=== PATIENT | female | born 1965 | race African-American/Black ===

== ENCOUNTER → 2017-01-09 | Day surgery (SDC) | payer MEDICAID ==
[~2017-01-09] VITALS: Ht 160 cm; Wt 77.1 kg
[~2017-01-09] MED LIST: ASPI-1159 PO; BUPIVACAINE/EPINEPHRINE/PF 0.25%/0.0005 30ML ONE; FLUT9.9S NS; GABA-531 PO; IBUP-2030 PO; LACTATED RINGERS 1,000 ML IV SCH; LURA80TA PO; METFORMIN; MORPHINE SULFATE/PF 1MG/ML 10ML AMP ONE; NAPR-681 PO; OMEP20TA2 PO; SERT-112 PO; SUCR1TAB30 PO; TRAM50TA3 PO; VENL150C52 PO; abilify; trazadone; zoloft
== END ==
LOC: OR 05:41
PROVIDERS: ATTEND Orthopaedic Surgery
DX: M94.261 Chondromalacia, right knee (principal); Z53.9 Procedure and treatment not carried out, unspecified reason
CPT/HCPCS: 29880; 82962; J7120; J0171; J2274

== ENCOUNTER 2017-01-11 11:49 | Day surgery (SDC) | payer MEDICAID ==
[~2017-01-11 11:49] MED LIST changes: -BUPIVACAINE/EPINEPHRINE/PF 0.25%/0.0005 30ML ONE; -LACTATED RINGERS 1,000 ML IV SCH; -MORPHINE SULFATE/PF 1MG/ML 10ML AMP ONE
[2017-01-11] MEDS ORDERED: DEXT 5%/0.9% NACL 1,000 ML IV SCH (14:45)
[2017-01-11] MEDS ORDERED: BUPIVACAINE/EPINEPHRINE/PF 0.25%/0.0005 30ML ONE (19:10)
[2017-01-11] MEDS ORDERED: EPINEPHRINE 1:1000 1 MG/ML AMP ONE (19:10)
[2017-01-11] MEDS ORDERED: MORPHINE SULFATE/PF 1MG/ML 10ML AMP ONE (19:12)
[2017-01-11] MEDS ORDERED: MIDAZOLAM HCL 2 MG/2 ML VIAL ONE (19:21)
[2017-01-11] MEDS ORDERED: LIDOCAINE HCL 1% 20ML VIAL (Pyxis) INJ ONE (19:21)
[2017-01-11] MEDS ORDERED: PROPOFOL 200MG/20ML VIAL IV ONE (19:21)
[2017-01-11] MEDS ORDERED: ROCURONIUM BROMIDE 10MG/ML VIAL 5ML IV ONE (19:21)
[2017-01-11] MEDS ORDERED: FENTANYL CITRATE/PF 50MCG/ML 2ML VIAL ONE (19:21)
[2017-01-11] MEDS ORDERED: ONDANSETRON HCL 4MG/2ML VIAL ONE (19:52)
[2017-01-11] MEDS ORDERED: METOCLOPRAMIDE HCL 10MG/2ML VIAL ONE (19:52)
[2017-01-11] MEDS ORDERED: EPHEDRINE SULFATE 50MG/ML VIAL ONE (19:58)
[2017-01-11] MEDS ORDERED: NEOSTIGMINE METHYLSULFATE 1MG/ML 10 ML VIAL ONE (20:16)
[2017-01-11] MEDS ORDERED: GLYCOPYRROLATE 0.2 MG/ML 2ML VIAL ONE (20:16)
[2017-01-11] MEDS ORDERED: MORPHINE SULFATE 10 MG/ML CPJ IV PRN (20:30)
[2017-01-11 21:07] VITALS: BP 134/61
== END 2017-01-11 22:00 | disposition home or self-care (01) ==
LOC: OR 11:49
PROVIDERS: ATTEND Orthopaedic Surgery
DX: M94.261 Chondromalacia, right knee (principal); M65.9 Synovitis and tenosynovitis, unspecified; M25.761 Osteophyte, right knee; M23.8X1 Other internal derangements of right knee; E66.3 Overweight; E13.69 Other specified diabetes mellitus with other specified complication; K44.9 Diaphragmatic hernia without obstruction or gangrene; F32.9 Major depressive disorder, single episode, unspecified; M19.90 Unspecified osteoarthritis, unspecified site; G89.29 Other chronic pain; Z91.013 Allergy to seafood; Z79.4 Long term (current) use of insulin; Z79.899 Other long term (current) drug therapy; Z86.2 Personal history of diseases of the blood and blood-forming organs and certain disorders involving the immune mechanism; Z79.01 Long term (current) use of anticoagulants; Z98.890 Other specified postprocedural states; Z90.710 Acquired absence of both cervix and uterus
CPT/HCPCS: 29881; 82962; 88305; 88311; J0171; J2250; J2270; J2405; J2710; J2765; J3010; J3490; J7042; J7120; L1830; J2274; J2704

== ENCOUNTER 2017-05-10 05:37 | Inpatient (IN) | payer MEDICAID ==
[~2017-05-10] VITALS: Ht 160 cm; Wt 79.8 kg
[~2017-05-10 05:37] MED LIST changes: +ERGO500013 PO; +METF500T4 PO; -METFORMIN; +TRAZ150T79 PO; -trazadone
[2017-05-10] MEDS ORDERED: LACTATED RINGERS 1,000 ML IV SCH (06:15)
[2017-05-10] MEDS ORDERED: MORPHINE SULFATE/PF 1MG/ML 10ML AMP ONE (06:52)
[2017-05-10] MEDS ORDERED: GENTAMICIN SULF 40MG/ML 2ML VIAL ONE (06:53)
[2017-05-10] MEDS ORDERED: EPINEPHRINE 1:1000 1 MG/ML AMP ONE (06:54)
[2017-05-10] MEDS ORDERED: BACITRACIN 50,000 UNITS/VIAL ONE (06:54)
[2017-05-10] MEDS ORDERED: NORMAL SALINE 0.9% 10 ML SYR ONE (06:54)
[2017-05-10 06:55] LABS: BASOPHILS % 0.7 % (0.0-2.0); EOSINOPHILS % 4.4 % (0.0-5.0); HEMATOCRIT. 35.1 % (36.0-48.0); HEMOGLOBIN. 11.1 g/dL (12.0-16.0); LYMPHOCYTES % 39.6 % (20.0-50.0); MEAN CORPUSCULAR HEMOGLOBIN 23.6 pg (28.0-32.0); MEAN CORPUSCULAR VOLUME 74.7 fL (81.0-99.0); MEAN PLATELET VOLUME 8.9 fl (7.4-10.4); NEUTROPHILS % 45.3 % (40.0-76.0); PLATELET 361 x1000/uL (130-400); RED CELL DISTRIBUTION WIDTH 16.9 % (11.6-14.6)
[2017-05-10] MEDS ORDERED: TRANEXAMIC ACID 1,000 MG in SODIUM CHLORIDE 0.9% 100 ML IV NR (07:00)
[2017-05-10 07:03] LABS: PARTIAL THROMBOPLASTIN TIME 26.2 sec (23.4-31.0); PROTHROMBIN TIME 10.7 sec (9.4-11.6)
[2017-05-10 07:05] LABS: CHLORIDE 111 mEq/L (98-107)
[2017-05-10 07:28] LABS: CLARITY URINE CLEAR (CLEAR); COLOR URINE YELLOW (YELLOW); KETONES URINE NEGATIVE (NEGATIVE); LEUKOCYTE ESTERASE URINE NEGATIVE (NEGATIVE); NITRITE URINE NEGATIVE (NEGATIVE); OCCULT BLOOD URINE NEGATIVE (NEGATIVE); PROTEIN URINE NEGATIVE (NEGATIVE); SPECIFIC GRAVITY URINE 1.017 (1.005-1.030); UROBILINOGEN URINE 0.2 E.U./dL (0.2-1.0)
[2017-05-10] MEDS ORDERED: BUPIVACAINE HCL/EPINEPHRINE/PF 0.5%/0.0005 10ML ONE (07:28)
[2017-05-10] MEDS ORDERED: ZOLPIDEM TARTRATE 5MG TABLET PO PRN (07:30)
[2017-05-10] MEDS ORDERED: MAGNESIUM HYDROXIDE 400MG/5ML 30ML UDC PO PRN (07:30)
[2017-05-10] MEDS ORDERED: HYDROCODONE/ACETAMINOPHEN 10/325MG TABLET PO PRN (07:30)
[2017-05-10] MEDS ORDERED: ONDANSETRON HCL 4MG/2ML VIAL IV PRN ×2 (07:30→08:30)
[2017-05-10] MEDS ORDERED: FENTANYL CITRATE/PF 50MCG/ML 2ML VIAL ONE (07:34)
[2017-05-10] MEDS ORDERED: MIDAZOLAM HCL 2 MG/2 ML VIAL ONE (07:34)
[2017-05-10] MEDS ORDERED: PROPOFOL 10MG/ML 100ML 100 ML IV ONE (07:39)
[2017-05-10] MEDS ORDERED: METHYLENE BLUE 50 MG/10 ML AMP IV ONE (07:54)
[2017-05-10] MEDS ORDERED: CEFAZOLIN SODIUM 1000MG/VIAL ONE (07:55)
[2017-05-10] MEDS ORDERED: DEXAMETHASONE 4MG/ML 1ML VIAL ONE (07:55)
[2017-05-10] MEDS ORDERED: ONDANSETRON HCL 4MG/2ML VIAL ONE (07:55)
[2017-05-10] MEDS ORDERED: MEPERIDINE HCL/PF 25MG/ML CPJ IV PRN (08:30)
[2017-05-10] MEDS ORDERED: LABETALOL 5MG/ML SYR 20 MG/4 ML SYRINGE IV PRN (08:30)
[2017-05-10] MEDS ORDERED: HYDROMORPHONE HCL/PF 2MG/ML CPJ IV PRN (08:30)
[2017-05-10] MEDS ORDERED: PROPOFOL 200MG/20ML VIAL IV ONE (09:37)
[2017-05-10] MEDS ORDERED: DIPHENHYDRAMINE INJ IV PRN (11:45)
[2017-05-10] MEDS ORDERED: ONDANSETRON INJ IV PRN (11:45)
[2017-05-10] MEDS ORDERED: NALOXONE INJ IV PRN (11:45)
[2017-05-10] MEDS ORDERED: HYDROMORPHONE PCA 10MG/50ML IV PRN (11:45)
[2017-05-10 20:00] VITALS: BP 113/65
[2017-05-10] MEDS ORDERED: DEXTROSE 50% WATER 50ML SYRINGE IV PRN (20:15)
[2017-05-10] MEDS: DOCUSATE SODIUM 100MG CAPSULE PO SCH (20:24)
[2017-05-10] MEDS: FERROUS SULFATE 325MG TABLET PO SCH (20:24)
[2017-05-10] MEDS: INSULIN LISPRO 100 UNITS/ML SUBCUT SCH (21:00)
[2017-05-10] MEDS: BLOOD SUGAR DIAGNOSTIC STRIP TEST SCH (21:24)
[2017-05-11] VITALS: BP 107/58
[2017-05-11] MEDS: CEFAZOLIN 2,000 MG in DEXT 5% WATER 100 ML IV SCH ×2 (00:28→08:35)
[2017-05-11 04:00] VITALS: BP 112/68
[2017-05-11 05:52] LABS: HEMATOCRIT 30.3 % (36.0-48.0); HEMOGLOBIN 9.8 g/dL (12.0-16.0); MEAN CORPUSCULAR HEMOGLOBIN 24.4 pg (28.0-32.0); MEAN CORPUSCULAR VOLUME 75.4 fL (81.0-99.0); PLATELET 303 x1000/uL (130-400); RED BLOOD CELL COUNT 4.02 mill/uL (4.2-5.4); RED CELL DISTRIBUTION WIDTH 16.9 % (11.6-14.6)
[2017-05-11] MEDS: BLOOD SUGAR DIAGNOSTIC STRIP TEST SCH ×4 (06:50→21:46)
[2017-05-11 06:52] LABS: CHLORIDE 109 mEq/L (98-107)
[2017-05-11] MEDS: HYDROCODONE/ACETAMINOPHEN 10/325MG TABLET PO PRN ×2 (07:08→22:36)
[2017-05-11] MEDS: INSULIN LISPRO 100 UNITS/ML SUBCUT SCH ×4 (07:10→21:51)
[2017-05-11 08:00] VITALS: BP 113/62
[2017-05-11] MEDS: FERROUS SULFATE 325MG TABLET PO SCH ×3 (08:34→17:37)
[2017-05-11] MEDS: DOCUSATE SODIUM 100MG CAPSULE PO SCH ×2 (08:34→17:37)
[2017-05-11] MEDS: ENOXAPARIN 30MG/0.3ML SYR SUBCUT SCH ×2 (08:35→21:26)
[2017-05-11 12:00] VITALS: BP 104/67
[2017-05-11 16:00] VITALS: BP 133/69
[2017-05-11] MEDS: ACETAMINOPHEN 325MG TABLET PO PRN (17:38)
[2017-05-11 20:00] VITALS: BP 131/70
[2017-05-12] VITALS (7 sets, daily range): BP systolic 119–139; BP diastolic 51–75
[2017-05-12] MEDS: ACETAMINOPHEN 325MG TABLET PO PRN (01:17)
[2017-05-12] MEDS: HYDROCODONE/ACETAMINOPHEN 10/325MG TABLET PO PRN ×3 (03:21→16:52)
[2017-05-12] MEDS: BLOOD SUGAR DIAGNOSTIC STRIP TEST SCH ×3 (07:04→17:09)
[2017-05-12] MEDS: INSULIN LISPRO 100 UNITS/ML SUBCUT SCH ×3 (07:50→17:09)
[2017-05-12 08:09] LABS: BASOPHILS % 0.4 % (0.0-2.0); EOSINOPHILS % 0.8 % (0.0-5.0); HEMATOCRIT. 30.5 % (36.0-48.0); HEMOGLOBIN. 9.7 g/dL (12.0-16.0); LYMPHOCYTES % 34.5 % (20.0-50.0); MEAN CORPUSCULAR HEMOGLOBIN 23.7 pg (28.0-32.0); MEAN CORPUSCULAR VOLUME 74.3 fL (81.0-99.0); MEAN PLATELET VOLUME 9.1 fl (7.4-10.4); MONOCYTES % 11.9 % (2.0-8.0); NEUTROPHILS % 52.4 % (40.0-76.0); PLATELET 301 x1000/uL (130-400); RED BLOOD CELL COUNT 4.11 mill/uL (4.2-5.4); RED CELL DISTRIBUTION WIDTH 16.6 % (11.6-14.6)
[2017-05-12 08:51] LABS: CHLORIDE 108 mEq/L (98-107)
[2017-05-12] MEDS: DOCUSATE SODIUM 100MG CAPSULE PO SCH ×2 (09:50→17:19)
[2017-05-12] MEDS: FERROUS SULFATE 325MG TABLET PO SCH ×3 (09:51→17:19)
[2017-05-12] MEDS: ENOXAPARIN 30MG/0.3ML SYR SUBCUT SCH (09:51)
== END 2017-05-12 17:55 | disposition home health service (06) | DRG 302 ==
LOC: OR 05:37 → ORIP 07:29 → 6EST 18:30
PROVIDERS: ADMIT Internal Medicine; ATTEND Internal Medicine
PROC: 0SRC0J9 Replacement of Right Knee Joint with Synthetic Substitute, Cemented, Open Approach (ICD-10-PCS; principal; 2017-05-10 07:30)
DX: M17.11 Unilateral primary osteoarthritis, right knee (principal); I10 Essential (primary) hypertension; D64.9 Anemia, unspecified; E11.9 Type 2 diabetes mellitus without complications; F32.9 Major depressive disorder, single episode, unspecified; E78.5 Hyperlipidemia, unspecified; G89.29 Other chronic pain; K21.9 Gastro-esophageal reflux disease without esophagitis; M65.9 Synovitis and tenosynovitis, unspecified; Z79.82 Long term (current) use of aspirin; Z79.899 Other long term (current) drug therapy; Z90.710 Acquired absence of both cervix and uterus; Z90.49 Acquired absence of other specified parts of digestive tract
CPT/HCPCS: 36415; 73560; 80048; 81003; 82962; 85025; 85027; 85610; 85730; 86850; 86900; 86920; 88304; 88311; 93970; 97110; 97116; 97162; 97166; 97530; 97535; A4216; J0171; J0690; J1100; J1170; J1580; J1650; J1815; J2250; J2274; J2405; J2704; J3010; J3490; J7030; J7050; J7060; J7120; Q9968

== ENCOUNTER 2017-11-04 13:12 | Emergency (ER) | payer MEDICAID ==
[~2017-11-04] VITALS: Ht 160 cm; Wt 79.0 kg
[~2017-11-04 13:12] MED LIST changes: -METF500T4 PO; +METF500T6 PO; -abilify; -zoloft
[2017-11-04 13:27] VITALS: BP 147/77
== END 2017-11-04 15:51 | disposition home or self-care (01) ==
LOC: ER 14:39
DX: D22.39 Melanocytic nevi of other parts of face (principal); E11.9 Type 2 diabetes mellitus without complications; K21.9 Gastro-esophageal reflux disease without esophagitis; F32.9 Major depressive disorder, single episode, unspecified
CPT/HCPCS: 99281

== ENCOUNTER 2018-10-05 10:22 | Emergency (ER) | payer MEDICAID ==
[~2018-10-05] VITALS: Ht 162.6 cm; Wt 78.0 kg
[~2018-10-05 10:22] MED LIST changes: -ASPI-1159 PO; +ASPI-1393 PO; +METF-414 PO; -METF500T6 PO
[2018-10-05] MEDS ORDERED: PREDNISONE 20MG TABLET PO STA (10:49)
[2018-10-05] MEDS ORDERED: ALBUTEROL (0.083%) 2.5MG/3ML NEB HHN STA (10:49)
[2018-10-05 11:43] VITALS: BP 134/89
== END 2018-10-05 11:43 | disposition home or self-care (01) ==
LOC: ER 10:22
DX: J20.9 Acute bronchitis, unspecified (principal); J01.90 Acute sinusitis, unspecified; I10 Essential (primary) hypertension; E11.9 Type 2 diabetes mellitus without complications; Z79.82 Long term (current) use of aspirin; Z90.710 Acquired absence of both cervix and uterus; Z96.659 Presence of unspecified artificial knee joint; Z98.890 Other specified postprocedural states
CPT/HCPCS: 71045; 94640; 99283; J7611

== ENCOUNTER 2018-11-22 17:22 | Emergency (ER) | payer MEDICAID ==
[~2018-11-22] VITALS: Ht 160 cm; Wt 76.0 kg
[2018-11-22 19:04] LABS: CLARITY URINE CLEAR (CLEAR); COLOR URINE YELLOW (YELLOW); KETONES URINE NEGATIVE (NEGATIVE); LEUKOCYTE ESTERASE URINE 2+ (NEGATIVE); NITRITE URINE NEGATIVE (NEGATIVE); OCCULT BLOOD URINE NEGATIVE (NEGATIVE); PROTEIN URINE NEGATIVE (NEGATIVE); SPECIFIC GRAVITY URINE 1.007 (1.005-1.030); UROBILINOGEN URINE 0.2 E.U./dL (0.2-1.0)
[2018-11-22] MEDS ORDERED: AMOXICILLIN 500 MG CAPSULE PO ONE (19:15)
[2018-11-22 19:20] VITALS: BP 132/74
== END 2018-11-22 21:42 | disposition home or self-care (01) ==
LOC: ER 17:22
DX: N30.90 Cystitis, unspecified without hematuria (principal); E11.9 Type 2 diabetes mellitus without complications; Z79.82 Long term (current) use of aspirin; Z79.899 Other long term (current) drug therapy
CPT/HCPCS: 81003; 87077; 87186; 99283

== ENCOUNTER 2019-04-17 15:46 | Emergency (ER) | payer MEDICAID ==
[~2019-04-17] VITALS: Ht 157.5 cm; Wt 69.0 kg
[~2019-04-17 15:46] MED LIST changes: -ASPI-1393 PO; +ASPI-1497 PO
[2019-04-17] MEDS ORDERED: TETRACAINE 0.5% OPHTH DROPS 4ML BOTHEYE ONE (17:30)
[2019-04-17] MEDS ORDERED: FLUORESCEIN SODIUM 1MG/STRIP BOTHEYE ONE (17:30)
[2019-04-17 18:38] VITALS: BP 132/79
== END 2019-04-17 18:39 | disposition home or self-care (01) ==
LOC: ER 15:46
DX: H57.11 Ocular pain, right eye (principal); H04.123 Dry eye syndrome of bilateral lacrimal glands; E11.9 Type 2 diabetes mellitus without complications; Z79.82 Long term (current) use of aspirin; Z90.710 Acquired absence of both cervix and uterus; Z96.659 Presence of unspecified artificial knee joint; Z98.890 Other specified postprocedural states
CPT/HCPCS: 99283

== ENCOUNTER 2019-08-01 13:34 | Emergency (ER) | payer MEDICAID ==
[~2019-08-01] VITALS: Ht 157.5 cm; Wt 69.0 kg
[2019-08-01] MEDS ORDERED: ACETAMINOPHEN 325MG TABLET PO STA (14:36)
[2019-08-01] MEDS ORDERED: ONDANSETRON 4MG ODT PO ONE (14:45)
[2019-08-01] MEDS ORDERED: FAMOTIDINE 20MG TABLET PO ONE (14:45)
[2019-08-01 14:53] LABS: CLARITY URINE CLEAR (CLEAR); COLOR URINE YELLOW (YELLOW); KETONES URINE NEGATIVE (NEGATIVE); LEUKOCYTE ESTERASE URINE NEGATIVE (NEGATIVE); NITRITE URINE NEGATIVE (NEGATIVE); OCCULT BLOOD URINE NEGATIVE (NEGATIVE); PROTEIN URINE NEGATIVE (NEGATIVE); SPECIFIC GRAVITY URINE 1.011 (1.005-1.030); UROBILINOGEN URINE 0.2 E.U./dL (0.2-1.0)
[2019-08-01 15:35] LABS: BASOPHILS % 0.9 % (0.0-2.0); EOSINOPHILS % 2.1 % (0.0-5.0); HEMATOCRIT. 34.1 % (36.0-48.0); HEMOGLOBIN. 11.4 g/dL (12.0-16.0); LYMPHOCYTES % 27.1 % (20.0-50.0); MEAN CORPUSCULAR HEMOGLOBIN 27.5 pg (28.0-32.0); MEAN CORPUSCULAR VOLUME 82.1 fL (81.0-99.0); MEAN PLATELET VOLUME 9.6 fl (7.4-10.4); MONOCYTES % 9.6 % (2.0-8.0); NEUTROPHILS % 60.3 % (40.0-76.0); PLATELET 289 x1000/uL (130-400); RED BLOOD CELL COUNT 4.15 mill/uL (4.2-5.4); RED CELL DISTRIBUTION WIDTH 15.4 % (11.6-14.6)
[2019-08-01 15:42] LABS: INR 0.9; PROTHROMBIN TIME 10.3 sec (9.6-11.0)
[2019-08-01 15:43] LABS: CHLORIDE 108 mEq/L (98-107)
[2019-08-01 19:00] VITALS: BP 158/88
== END 2019-08-01 19:12 | disposition home or self-care (01) ==
LOC: ER 13:34
DX: R10.9 Unspecified abdominal pain (principal); E11.9 Type 2 diabetes mellitus without complications; Z79.899 Other long term (current) drug therapy; Z79.82 Long term (current) use of aspirin; Z90.710 Acquired absence of both cervix and uterus
CPT/HCPCS: 36415; 76700; 80053; 81003; 83690; 85025; 85610; 99284; Q0162

== ENCOUNTER 2019-08-18 18:48 | Emergency (ER) | payer MEDICAID ==
[~2019-08-18] VITALS: Ht 165.1 cm; Wt 70.0 kg
[2019-08-18] MEDS ORDERED: SODIUM CHLORIDE 0.9% 1,000 ML IV ONE (23:29)
[2019-08-18] MEDS ORDERED: KETOROLAC 15MG/ML VIAL IV ONE (23:30)
[2019-08-19 00:03] LABS: BASOPHILS % 0.6 % (0.0-2.0); EOSINOPHILS % 1.9 % (0.0-5.0); HEMATOCRIT. 37.6 % (36.0-48.0); LYMPHOCYTES % 33.9 % (20.0-50.0); MEAN CORPUSCULAR HEMOGLOBIN 28.2 pg (28.0-32.0); MEAN CORPUSCULAR VOLUME 81.5 fL (81.0-99.0); MONOCYTES % 8.9 % (2.0-8.0); NEUTROPHILS % 54.7 % (40.0-76.0); PLATELET 327 x1000/uL (130-400); RED BLOOD CELL COUNT 4.62 mill/uL (4.2-5.4); RED CELL DISTRIBUTION WIDTH 15.4 % (11.6-14.6)
[2019-08-19 00:19] LABS: CHLORIDE 108 mEq/L (98-107)
[2019-08-19 01:58] VITALS: BP 129/84
== END 2019-08-19 02:00 | disposition home or self-care (01) ==
LOC: ER 18:48
DX: N28.89 Other specified disorders of kidney and ureter (principal); F41.9 Anxiety disorder, unspecified; F32.9 Major depressive disorder, single episode, unspecified; E11.9 Type 2 diabetes mellitus without complications; F20.9 Schizophrenia, unspecified; Z90.710 Acquired absence of both cervix and uterus; Z79.82 Long term (current) use of aspirin; Z79.899 Other long term (current) drug therapy
CPT/HCPCS: 36415; 74176; 80053; 83690; 85025; 96374; 99284; J1885; J7030

== ENCOUNTER 2019-10-07 14:12 | Emergency (ER) | payer MEDICAID ==
[~2019-10-07] VITALS: Ht 157.5 cm; Wt 68.0 kg
[2019-10-07 15:34] LABS: BASOPHILS % 0.7 % (0.0-2.0); EOSINOPHILS % 1.6 % (0.0-5.0); HEMATOCRIT. 35.8 % (36.0-48.0); HEMOGLOBIN. 11.7 g/dL (12.0-16.0); LYMPHOCYTES % 25.4 % (20.0-50.0); MEAN CORPUSCULAR HEMOGLOBIN 27.1 pg (28.0-32.0); MEAN CORPUSCULAR VOLUME 82.9 fL (81.0-99.0); MEAN PLATELET VOLUME 9.9 fl (7.4-10.4); MONOCYTES % 7.9 % (2.0-8.0); NEUTROPHILS % 64.4 % (40.0-76.0); PLATELET 270 x1000/uL (130-400); RED BLOOD CELL COUNT 4.32 mill/uL (4.2-5.4); RED CELL DISTRIBUTION WIDTH 14.7 % (11.6-14.6)
[2019-10-07 15:36] LABS: CLARITY URINE CLEAR (CLEAR); COLOR URINE YELLOW (YELLOW); KETONES URINE NEGATIVE (NEGATIVE); LEUKOCYTE ESTERASE URINE 3+ (NEGATIVE); NITRITE URINE NEGATIVE (NEGATIVE); OCCULT BLOOD URINE NEGATIVE (NEGATIVE); PH URINE 7.5 (4.5-8.0); PROTEIN URINE NEGATIVE (NEGATIVE); SPECIFIC GRAVITY URINE 1.014 (1.005-1.030); UROBILINOGEN URINE 0.2 E.U./dL (0.2-1.0)
[2019-10-07 15:38] LABS: CHLORIDE 111 mEq/L (98-107)
[2019-10-07] MEDS ORDERED: MORPHINE SULFATE 4 MG/ML CPJ (NOT FOR IM USE) IV STA (16:20)
[2019-10-07] MEDS ORDERED: ONDANSETRON HCL 4MG/2ML INJ IV STA (16:20)
[2019-10-07] MEDS ORDERED: SODIUM CHLORIDE 0.9% 1,000 ML IV ONE (16:20)
[2019-10-07] MEDS ORDERED: CEFTRIAXONE 1 G PREMIX 50 ML IV ONE (17:15)
[2019-10-07 19:34] VITALS: BP 121/72
== END 2019-10-07 19:34 | disposition home or self-care (01) ==
LOC: ER 14:12
DX: R10.11 Right upper quadrant pain (principal); R35.8 Other polyuria; R30.0 Dysuria; N28.89 Other specified disorders of kidney and ureter; E11.9 Type 2 diabetes mellitus without complications; I10 Essential (primary) hypertension; Z79.899 Other long term (current) drug therapy; Z86.73 Personal history of transient ischemic attack (TIA), and cerebral infarction without residual deficits; Z90.710 Acquired absence of both cervix and uterus; Z98.890 Other specified postprocedural states; Z96.659 Presence of unspecified artificial knee joint; Z79.82 Long term (current) use of aspirin
CPT/HCPCS: 36415; 71045; 74176; 80053; 81003; 83605; 84484; 85025; 87086; 93005; 96365; 96375; 99285; J0696; J2270; J2405; J7030

== ENCOUNTER 2019-11-13 11:06 | Emergency (ER) | payer MEDICAID ==
[~2019-11-13] VITALS: Ht 157.5 cm; Wt 68.0 kg
[2019-11-13] MEDS ORDERED: HYDROCODONE/ACETAMINOPHEN 5/325MG TABLET PO STA (14:40)
[2019-11-13] MEDS ORDERED: MAGNESIUM/ALUMINUM HYDROXIDE/SIMETHICONE 30ML UDC PO STA (14:42)
[2019-11-13] MEDS ORDERED: FAMOTIDINE 20MG/2ML VIAL IV STA (14:42)
[2019-11-13 15:23] LABS: BASOPHILS % 0.7 % (0.0-2.0); CHLORIDE 110 mEq/L (98-107); HEMATOCRIT. 36.5 % (36.0-48.0); LYMPHOCYTES % 26.3 % (20.0-50.0); MEAN CORPUSCULAR HEMOGLOBIN 27.1 pg (28.0-32.0); MEAN CORPUSCULAR VOLUME 82.6 fL (81.0-99.0); MEAN PLATELET VOLUME 9.1 fl (7.4-10.4); MONOCYTES % 9.2 % (2.0-8.0); NEUTROPHILS % 61.8 % (40.0-76.0); PLATELET 313 x1000/uL (130-400); RED BLOOD CELL COUNT 4.42 mill/uL (4.2-5.4); RED CELL DISTRIBUTION WIDTH 14.4 % (11.6-14.6)
[2019-11-13 16:53] LABS: CLARITY URINE CLEAR (CLEAR); COLOR URINE YELLOW (YELLOW); KETONES URINE NEGATIVE (NEGATIVE); LEUKOCYTE ESTERASE URINE NEGATIVE (NEGATIVE); NITRITE URINE NEGATIVE (NEGATIVE); OCCULT BLOOD URINE NEGATIVE (NEGATIVE); PH URINE 6.5 (4.5-8.0); PROTEIN URINE NEGATIVE (NEGATIVE); UROBILINOGEN URINE 0.2 E.U./dL (0.2-1.0)
[2019-11-13 20:02] VITALS: BP 125/71
== END 2019-11-13 20:02 | disposition home or self-care (01) ==
LOC: ER 11:06
DX: R35.0 Frequency of micturition (principal); R30.0 Dysuria; R10.9 Unspecified abdominal pain; E11.9 Type 2 diabetes mellitus without complications; I10 Essential (primary) hypertension; M19.90 Unspecified osteoarthritis, unspecified site; Z79.82 Long term (current) use of aspirin; Z90.710 Acquired absence of both cervix and uterus; Z96.659 Presence of unspecified artificial knee joint; Z98.890 Other specified postprocedural states
CPT/HCPCS: 36415; 80053; 81003; 83690; 85025; 96374; 99283; J3490

== ENCOUNTER 2020-01-14 22:43 | Emergency (ER) | payer MEDICAID ==
[~2020-01-14] VITALS: Ht 157.5 cm; Wt 73.2 kg
[2020-01-14] MEDS ORDERED: DIPHENHYDRAMINE 25MG CAPSULE PO ONE (23:15)
[2020-01-14] MEDS ORDERED: ASPIRIN 81MG TABLET PO ONE (23:15)
[2020-01-14 23:54] LABS: BASOPHILS % 0.6 % (0.0-2.0); EOSINOPHILS % 0.2 % (0.0-5.0); HEMATOCRIT. 40.1 % (36.0-48.0); HEMOGLOBIN. 13.2 g/dL (12.0-16.0); LYMPHOCYTES % 12.8 % (20.0-50.0); MEAN CORPUSCULAR HEMOGLOBIN 26.5 pg (28.0-32.0); MEAN CORPUSCULAR VOLUME 80.4 fL (81.0-99.0); MEAN PLATELET VOLUME 9.6 fl (7.4-10.4); NEUTROPHILS % 80.4 % (40.0-76.0); PLATELET 232 x1000/uL (130-400); RED BLOOD CELL COUNT 4.98 mill/uL (4.2-5.4); RED CELL DISTRIBUTION WIDTH 15.3 % (11.6-14.6)
[2020-01-15 00:01] LABS: CHLORIDE 106 mEq/L (98-107)
[2020-01-15 04:29] VITALS: BP 120/84
[2020-01-18] MEDS ORDERED: LEVO750T21 MT (14:40)
[2020-01-18] MEDS ORDERED: DEXA6TAB MT (14:40)
== END 2020-01-15 04:31 | disposition home or self-care (01) ==
LOC: ER 22:43
DX: K44.9 Diaphragmatic hernia without obstruction or gangrene (principal); K21.9 Gastro-esophageal reflux disease without esophagitis; F41.9 Anxiety disorder, unspecified; I10 Essential (primary) hypertension; M06.9 Rheumatoid arthritis, unspecified; Z79.82 Long term (current) use of aspirin; Z90.710 Acquired absence of both cervix and uterus; Z91.013 Allergy to seafood; Z96.659 Presence of unspecified artificial knee joint; Z98.890 Other specified postprocedural states
CPT/HCPCS: 36415; 71045; 80053; 83880; 84484; 85025; 93005; 99285; Q0163; Z7610

== ENCOUNTER → 2021-07-25 | Outpatient (CLI) | payer MEDICAID ==
[~2021-07-25] MED LIST changes: +CALC-26 MT; +CHOL400D7 PO; +DEXA6TAB MT; +DICL75TA5 MT; +EFEX1 PO; -FLUT9.9S NS; +FOLI-43 MT; -GABA-531 PO; +GABA-532 PO; +HYDR200T35 MT; -IBUP-2030 PO; +LEVO750T21 MT; -LURA80TA PO; +MAGN400T39 MT; +METF-414 MT; -METF-414 PO; +METH2.5T PO; -NAPR-681 PO; -OMEP20TA2 PO; +PANT40TA51 MT; +PRAV10TA35 MT; +SERT-112 MT; -SERT-112 PO; -SUCR1TAB30 PO; -TRAM50TA3 PO; +VALS320T16 MT; +VITA1CAP MT
== END | disposition home or self-care (01) ==
LOC: LAB 11:03
PROVIDERS: ATTEND Surgery
DX: Z01.812 Encounter for preprocedural laboratory examination (principal); Z20.822 Contact with and (suspected) exposure to COVID-19
CPT/HCPCS: 87426

== ENCOUNTER → 2021-07-26 | Day surgery (SDC) | payer MEDICAID ==
[~2021-07-26] VITALS: Ht 157.5 cm; Wt 79.4 kg
[~2021-07-26] MED LIST changes: +BUPIVACAINE HCL 0.5% (5MG/ML) 50ML ONE; +DEXAMETHASONE 4MG/ML 1ML VIAL ONE; +EPHEDRINE SULFATE 50MG/ML VIAL ONE; +FENTANYL CITRATE/PF 50MCG/ML 2ML VIAL ONE; +HYDROMORPHONE HCL/PF 2MG/ML CPJ IV PRN; +LABETALOL 5MG/ML SYR 20 MG/4 ML SYRINGE IV PRN; +LIDOCAINE HCL 1% 20ML VIAL (Pyxis) INJ ONE; +MEPERIDINE HCL/PF 25MG/ML CPJ IV PRN; +MIDAZOLAM HCL 2 MG/2 ML VIAL ONE; +ONDANSETRON HCL 4MG/2ML INJ IV PRN; +ONDANSETRON HCL 4MG/2ML INJ ONE; +PROPOFOL 200MG/20ML VIAL IV ONE; +SKIN ADHESIVE 0.7 GM EA TOP ONE
[2021-07-26 12:13] VITALS: BP 138/97
== END | disposition home or self-care (01) ==
LOC: OR 06:26
PROVIDERS: ATTEND Surgery
DX: R19.01 Right upper quadrant abdominal swelling, mass and lump (principal); K43.2 Incisional hernia without obstruction or gangrene; I10 Essential (primary) hypertension; E11.9 Type 2 diabetes mellitus without complications; M06.9 Rheumatoid arthritis, unspecified; Z79.84 Long term (current) use of oral hypoglycemic drugs; Z79.899 Other long term (current) drug therapy; Z98.890 Other specified postprocedural states
CPT/HCPCS: 22903; 49560; 82962; 88305; J1100; J1170; J2250; J2405; J2704; J3010; J3490